=== PATIENT | male | born 2000 | race African-American/Black ===

== ENCOUNTER 2021-04-03 17:01 | Emergency (ER) | payer OTHER ==
[~2021-04-03] VITALS: Ht 170.2 cm; Wt 74.8 kg
[2021-04-03 19:15] VITALS: BP 124/76
== END 2021-04-03 19:17 | disposition home or self-care (01) ==
LOC: ER 17:01
DX: S01.511A Laceration without foreign body of lip, initial encounter (principal); X58.XXXA Exposure to other specified factors, initial encounter; Y93.89 Activity, other specified; Y92.89 Other specified places as the place of occurrence of the external cause; Y99.8 Other external cause status